=== PATIENT | male | born 1980 | race Two or more races ===

== ENCOUNTER 2025-01-12 23:03 | Emergency (ER) | payer MEDICAID, SELFPAY ==
[2025-01-12 23:15] VITALS: PULSE 79; RESP 18; O2SAT 99; BMI 22.3
[2025-01-12 23:29] VITALS: BP 132/81; PULSE 75; RESP 18; TEMP 35.9; O2SAT 96
--- NOTE | 2025-01-12 23:36 | PD.EDABDPN ---
ED Abdominal Pain RME/HPI General Chief Complaint: Abdominal Pain Stated complaint: NAUSEA VOMITING Time seen by provider: 01/12/25 23:31 Arrival date/time: 01/12/25 23:03 Source: patient and EMS Mode of arrival: EMS Limitations: no limitations RME / HPI RME / HPI narrative: Dr. Hennessy?s Main ED Evaluation: 44yo male with a history of gallstones presents to the ED for a chief complaint of severe epigastric pain. Patient states he started having epigastric pain 2 hours ago after eating spicy food. He states he was unable to tolerate the pain, so he came in for evaluation. He denies any N/V, fever, chills or any other associated symptoms. No known allergies. Related Data Previous Rx's ?Medication ?Instructions ?Recorded aluminum-mag hydroxide-simethicone 10 ml PO TID PRN indigestion 01/13/25 400 mg-400 mg-40 mg/5 mL oral susp #3,000 mL (Antacid Maximum Strength) famotidine 20 mg tablet (Pepcid) 20 mg PO BID Epigastric pain 10 01/13/25 days #20 tabs ondansetron 4 mg disintegrating 4 mg PO Q6H PRN nausea and 01/13/25 tablet vomiting #14 tabs sucralfate 1 gram tablet (Carafate) 1 g PO TID Gastritis 10 days #30 01/13/25 tabs Allergies Allergy/AdvReac Type Severity Reaction Status Date / Time No Known Allergies Allergy Verified 02/07/23 15:23 Review of Systems Review of Systems Systems Reviewed: All systems reviewed, normal except as documented Past Medical History Past Medical History CARDIAC: Negative Cardiac Disorders or Congestive Heart Failure RESPIRATORY: Negative Chronic Obstructive Pulmonary Disease (COPD) or Asthma GENITOURINARY: Negative Renal Disease ENDOCRINE: Negative Diabetes Mellitus Type 1 or Diabetes Mellitus Type 2 Social History SMOKING STATUS: Current some day smoker SUBSTANCE USE: does not use ED Exam Narrative Physical exam: GENERAL APPEARANCE: alert and oriented x 4, well-developed, well-nourished, in pain distress VITALS: All vitals were reviewed and the pulse ox is 96% on room air, which is normal according to my interpretation. HEENT: Normocephalic, atraumatic; pupils equal, round, reactive to light; EOMI; mucous membranes pink, moist; oropharynx clear NECK: Supple LUNGS: CTABL; no wheezes, no rales, no rhonchi HEART: Regular rate, regular rhythm; normal S1, S2; no murmurs ABDOMEN: non distended; normal BS; soft, exquisite tenderness of the epigastric area and RUQ with mild tenderness, no RLQ tenderness on palpation, positive Oliver sign, no guarding, no rebound; no masses, no organomegaly, no hernia BACK: no CVA tenderness EXTREMITIES: atraumatic; no edema NEUROLOGIC: awake; alert and oriented x4; cranial nerves II-XII grossly intact; no focal sensory or motor deficits PSYCHIATRIC: appropriate mood and affect SKIN: warm, dry, normal color; no rashes General Limitations: Present no limitations Course Course Course Narrative: CXR is ordered for determining the etiology of cough. Quality Measures none Orders Category Date Time Status CT Screening NOW Care 01/12/25 23:53 Completed Telecom Coordinator STAT Care 01/12/25 23:37 Completed Continuous Pulse Oximetry STAT Care 01/12/25 23:37 Completed EKG (ED ONLY) *Do not use* NOW Care 01/12/25 23:37 Completed Insert IV STAT Care 01/12/25 23:[address] abdomen pelvis w con Stat Exams 01/12/25 23:53 Taken EKG (ED Only) Stat Exams 01/12/25 23:37 Draft US gall bladder Stat Exams 01/13/25 01:00 Ordered XR chest 1V portable Stat Exams 01/12/25 23:38 Completed CBC Stat Lab 01/12/25 23:56 Completed Comprehensive Metabolic Panel Stat Lab 01/12/25 23:56 Completed Lipase Stat Lab 01/12/25 23:56 Completed Magnesium Stat Lab 01/12/25 23:56 Completed Urinalysis Stat Lab 01/13/25 00:34 Completed Famotidine Inj [Pepcid Inj] Med 01/12/25 23:36 Discontinued 20 mg IVP X1 ONE HYDROmorphone INJ [Dilaudid Inj] Med 01/12/25 23:36 Discontinued 1 mg IVP X1 ONE Ondansetron Inj [Zofran Inj] Med 01/12/25 23:36 Discontinued 4 mg IV X1 ONE Sodium Chloride 0.9% 1000 ml [Ns] 1,000 ml Med 01/12/25 23:37 Discontinued IV 999 mls/hr mg Hyd/Al Hyd/[place] Susp [Maalox Susp] Med 01/12/25 23:36 Discontinued 30 ml PO X1 ONE Vital Signs Vital signs: Vital Signs Temperature 96.7 F L 01/12/25 23:29 Pulse Rate 75 01/12/25 23:29 Respiratory Rate 18 01/12/25 23:29 Blood Pressure 132/81 H 01/12/25 23:29 Pulse Oximetry (%) 96 01/12/25 23:29 Oxygen Delivery Method Room Air 01/12/25 23:29 Procedures -ED Procedure Comment Manual EKG obtained at 23:59 shows normal sinus rhythm at 79 bpm with normal axis, Q waves in V1, V2, and aVL, T wave inversions in V4?V6, and no evidence of STEMI per my interpretation. Abdominal Pain MDM MDM Narrative MDM Narrative:: Scribe Attestation: 01/12/25 Little Beyer am scribing for and in the presence of Dr. Hennessy. Patient data External records reviewed:: [facility] previous records (Per chart review, patient was seen here on 08/22/20 for biliary colic.) Clinical information provided by:: patient Social determinants that could affect healthcare access:: none Patient has the following chronic illnesses:: none How is presenting disease/condition affected by chronic disease/condition?: no chronic disease Evaluation data The following diagnostics were reviewed and interpreted by me:: lab results and radiology exam(s) Lab and/or radiology exams considered but not ordered:: none Interpretation Summary: Gallbladder ultrasound. January 13, 2025 0136 hours Clinical history: RUQ and epigastric pain. Hx GB pathology Findings: The visualized liver is normal in echogenicity without mass or ductal dilatation. Multiple calculi are noted within the gallbladder, without evidence of gallbladder wall thickening or pericholecystic fluid. The main portal vein is patent and demonstrates hepatopetal flow. The pancreas is unremarkable.The common duct is normal in caliber at 6mm. No free fluid is demonstrated on the submitted images.The inferior vena cava is patent. Impression: Cholelithiasis without acute cholecystitis. Medications / Prescriptions Medications or Prescriptions considered but not ordered:: none Medication administrations:: Medication Administration History Discontinued Medications Al Hydrox/Mg Hydrox/Simethicone (Mg Hyd/Al Hyd/[place] (Maalox Reg) Susp 30 Ml Udc) 30 ml PO X1 ONE Stop: 01/12/25 23:37 Last Admin: 01/13/25 00:13 Dose: 30 ml Documented By: EF Famotidine (Famotidine Inj 10 Mg/Ml Vial 2 Ml) 20 mg IVP X1 ONE Stop: 01/12/25 23:37 Last Admin: 01/13/25 00:12 Dose: 20 mg Documented By: EF Hydromorphone HCl (Hydromorphone Inj 2 Mg/Ml Vial) 1 mg IVP X1 ONE Stop: 01/12/25 23:37 Last Admin: 01/13/25 00:13 Dose: 1 mg Documented By: EF Sodium Chloride (Ns) 1,000 mls @ 999 mls/hr IV .Q1H1M ONE Stop: 01/13/25 00:37 Last Infusion: 01/13/25 01:13 Dose: Infused Documented By: Admin: 01/13/25 00:12 Dose: 999 mls/hr Documented By: EF Ondansetron HCl (Ondansetron Inj 2 Mg/Ml Inj 2 Ml) 4 mg IV X1 ONE; Protocol Stop: 01/12/25 23:37 Last Admin: 01/13/25 00:13 Dose: 4 mg Documented By: EF see above Consultations Consultation(s) initiated? (list below): No Diagnosis Differential diagnosis abdominal pain: diverticulitis, pancreatitis and other (cholelithiasis, choledocolithiasis, cholecystitis) Most likely diagnosis given after review of the tests above:: see clinical impression below Admission Indicated Admission indicated?: not indicated Admission Request Was there a request for admission?: No Disposition Plan Disposition Plan: Discharge Discharge Attestation Discharge Attestation: The patient and all family members were given an opportunity to ask questions and understood the discharge instructions. Discharge instructions specifically effects, indications for sooner follow up or return to the emergency department, and the expected course of current diagnosis. Patient condition: Stable Discharge Plan Plan Patient Disposition: HOME (Self Care) Disposition Comment: Stable for discharge home Patient condition on transfer: Stable Prescriptions/Referrals Prescriptions/Med Rec: New famotidine [Pepcid] 20 mg tablet 20 mg PO BID 10 Days Qty: 20 0RF alum-mag hydroxide-simeth [Antacid Maximum Strength] 400-400-40 mg/5 mL suspension 10 ml PO TID PRN (Reason: indigestion) Qty: 3000 0RF sucralfate [Carafate] 1 gram tablet 1 g PO TID 10 Days Qty: 30 0RF ondansetron 4 mg tablet,disintegrating 4 mg PO Q6H PRN (Reason: nausea and vomiting) Qty: 14 0RF Referrals: Samuel Kumar MD [Primary Care Provider] - In 1 week José Luis Conte MD [Physician] - In 1 week Problem List Clinical Impression: Acute epigastric pain, Gastritis, Vomiting Patient/Caregiver Discharge Instructions Discharge Activity: activity as tolerated Diet Instructions: No greasy or spicy foods Education Materials: ED Gastritis (Adult), ED Vomiting (Adult), ED Epigastric Pain (Uncertain Cause) Additional Instructions: Please return to the emergency department if you have any worsening or any further medical problems and we will help you. Otherwise you should follow-up with your primary care doctor within the next several days. I have given you the contact information for Dr. Conte. Dr. Conte is the real estate broker who is on-call for our emergency department. Please give his office a call and make a follow-up appointment. Have called in several medications to your pharmacy. Please take these as directed. Print Language: Syriac Stand Alone Forms: Shruthi Award Info., Patient Portal Info Letter
--- NOTE | 2025-01-12 23:37 | EKG_ITS ---
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
--- NOTE | 2025-01-12 23:38 | XR_ITS ---
Examination: AP chest single view TECHNIQUE: AP portable upright chest single view Examination date and time: January 13, 2025 1218 hours Comparison February 07, 2023, October 16, 2021 INDICATIONS: Coughing upper abdominal pain beginning 2 hours ago FINDINGS: Again noted calcified granuloma left upper lobe, noted on chest films dating to October 16, 2021 Normal heart size. No pneumonia or pulmonary edema Moderate osteopenia Upper thoracic levoscoliosis 17 degrees IMPRESSION: No active disease
--- NOTE | 2025-01-12 23:53 | XR_ITS ---
Examination: CT abdomen with intravenous contrast CT pelvis with intravenous contrast 2-D coronal reconstructions 2-D sagittal reconstructions Date and time of exam:January 13, 2025 0216 hours Comparison August 22, 2020 INDICATIONS: Onset right-sided abdominal pain today. CTDI: vol (mGy) 5.69 DLP: (mGycm) 304 Technique: Multiple axial sections of the abdomen and pelvis have been obtained. 64 slice high-resolution scanner used. 3 mm axial sections have been obtained, post intravenous injection 60 cc [id number] 2-D sagittal, coronal reconstructions obtained. Low dose protocols were performed. One or more of the following dose reduction techniques were used; automated exposure control, adjustment of the mA and/or KV according to patient size, use of iterative reconstruction technique. Findings: No focal liver or splenic lesions Mildly distended gallbladder Gastric mucosa appears thickened No pancreatic or adrenal mass Multiple subcentimeter renal calculi Subtle edema right kidney Aorta normal size Minimal thickening of the appendix without inflammatory change No bowel obstruction Urinary bladder intact Advanced disc narrowing L5-S1 IMPRESSION: Gastritis pattern Bilateral renal calculi Suspicious for mild right pyelonephritis
[2025-01-13 00:02] LABS: Basophils # (Auto) 0.1 Thou/mm3 (0.0-0.2); Basophils % (Auto) 1 % (0-2.5); Eosinophils # (Auto) 0.2 Thou/mm3 (0.0-0.5); Eosinophils % (Auto) 2 % (0-10); Hematocrit 37.8 % (41.0-53.0); Hemoglobin 13.7 g/dL (13.5-16.0); Immature Granulocytes % (Auto) 0 % (0-0); Immature Granulocytes Auto 0.02 Thou/mm3 (0.00-0.00); Lymphocytes # (Auto) 1.7 Thou/mm3 (1.0-4.8); Lymphocytes % (Auto) 20 % (10-50); Mean Corpuscular HGB Conc 36.2 g/dl (31.0-37.0); Mean Corpuscular Hemoglobin 30.3 pg (25.0-35.0); Mean Corpuscular Volume 84 fL (80-100); Monocytes # (Auto) 0.6 Thou/mm3 (0.0-0.8); Monocytes % (Auto) 7 % (0-12); Neutrophils # (Auto) 5.9 Thou/mm3 (1.8-7.7); Neutrophils % (Auto) 70 % (37-80); Nucleated Red Blood Cell % 0 /100 WBC (0); Platelet Count 311 Thou/mm3 (140-440); RDW Standard Deviation 36.9 fL (35.1-43.9); Red Blood Count 4.52 Miln/mm3 (4.50-5.90); White Blood Count 8.5 Thou/mm3 (3.8-10.6)
[2025-01-13 00:03] VITALS: PULSE 63
[2025-01-13] MEDS: FAMOTIDINE INJ 10 MG/ML VIAL 2 ML 20 MG IVP (00:12)
[2025-01-13] MEDS: SODIUM CHLORIDE 0.9% 1000 ML 1,000 ML 999 ML IV (00:12)
[2025-01-13] MEDS: MG HYD/AL HYD/SIME (Maalox Reg) SUSP 30 ML UDC PO (00:13)
[2025-01-13] MEDS: ONDANSETRON INJ 2 MG/ML INJ 2 ML 4 MG IV (00:13)
[2025-01-13] MEDS: HYDROmorphone INJ 2 MG/ML VIAL 1 MG IVP (00:13)
[2025-01-13 00:25] LABS: Alanine Aminotransferase 29 U/L (10-49); Albumin, Serum 4.1 gm/dL (3.5-5.0); Albumin/Globulin Ratio 1.4 (1.2-2.2); Alkaline Phosphatase 92 U/L (46-116); Anion Gap 11 (7-16); Aspartate Amino Transferase 21 U/L (0-34); BUN/Creatinine Ratio 17 Ratio (12-20); Bilirubin,Total 0.3 mg/dL (0.3-1.2); Blood Urea Nitrogen 19 mg/dL (9-23); Calcium 9.3 mg/dL (8.3-10.6); Calcium (Corrected) 9.3 mg/dL (8.5-10.1); Carbon Dioxide 24.1 mMol/L (20.0-31.0); Chloride 106 mMol/L (98-107); Creatinine (Component) 1.1 mg/dL (0.6-1.3); Estimated Creatinine Clearance 66.9 mL/min (>60); Globulin 2.9 gm/dL (2.3-3.5); Glucose 184 mg/dL (74-106); Lipase 58 U/L (12-53); Magnesium 1.8 mg/dL (1.6-2.6); Osmolality,Calculated 288 (275-295); Sodium 141 mMol/L (136-145); eGFR > 60 See Note
[2025-01-13 00:35] LABS: Collection Type, Urine Clean Catch
[2025-01-13 00:49] LABS: Bilirubin,Urine Negative (Negative); Blood,Urine Negative (Negative); Clarity,Urine Clear (Clear/Hazy); Color,Urine Lt-Yellow (Lt Yel-Yel); Glucose, Urine Negative (Negative); Ketones,Urine Negative (Negative); Leukocyte Esterase,Urine Negative (Negative); Nitrite,Urine Negative (Negative); Protein,Urine Negative (Neg - Trace); RBC,Urine 5 /hpf (0-3); Specific Gravity,Urine 1.027 (1.001-1.035); Squamous Epithelial Cell,Urine < 1 /hpf (0-5); Urobilinogen,Urine Negative mg/dL (0.0-1.0); WBC,Urine < 1 /hpf (0-5)
--- NOTE | 2025-01-13 01:00 | XR_ITS ---
Examination: Abdomen sonogram, Limited Date and time of exam: January 13, 2025 0136 hours INDICATIONS: Right upper abdominal pain epigastric pain this week Technique: Real-time merchant scale transabdominal sonographic images of the upper abdomen obtained. Findings: Cholelithiasis Gallbladder wall 0.3 cm Common bile duct 0.6 cm Pancreatic head 3.5 cm Liver 13.4 cm no focal liver lesions Normal hepatopedal portal venous flow Patent IVC IMPRESSION: Cholelithiasis, negative for cholecystitis
--- NOTE | 2025-01-13 04:05 | PC.NURSE ---
WE HAD DOWN TIME FROM [id number].
[2025-01-13 04:16] VITALS: BP 141/89; PULSE 61; RESP 17; O2SAT 100
--- NOTE | 2025-01-13 04:19 | PRELIM_ITS ---
Gallbladder ultrasound. January 13, 2025 0136 hours Clinical history: RUQ and epigastric pain. Hx GB pathology Findings: The visualized liver is normal in echogenicity without mass or ductal dilatation. Multiple calculi are noted within the gallbladder, without evidence of gallbladder wall thickening or pericholecystic fluid. The main portal vein is patent and demonstrates hepatopetal flow. The pancreas is unremarkable.The common duct is normal in caliber at 6mm. No free fluid is demonstrated on the submitted images.The inferior vena cava is patent. Impression: Cholelithiasis without acute cholecystitis. Report Electronically Signed By: Christophe Moore 01/13/2025 4:18:37 AM [EST]
[2025-01-13 04:57] VITALS: PULSE 88; RESP 13; TEMP 36.6; O2SAT 97
== END 2025-01-13 04:58 | disposition home or self-care (01) ==
PROVIDERS: Emergency Provider Emergency Medicine; PCP Family Medicine
DX: K29.70 Gastritis, unspecified, without bleeding (principal)
CPT/HCPCS: 36415; 71045; 74177; 76705; 80053; 81001; 83690; 83735; 85025; 93005; 96361; 96374; 96375; 99285; A4649; J2405; J3490; J7030; Q9967; A9270

== ENCOUNTER 2025-01-13 11:53 | Inpatient (IN) | payer MEDICAID, SELFPAY ==
[2025-01-13] VITALS (8 sets, daily range): BP systolic 105–137; BP diastolic 78–95; PULSE 78–104; RESP 14–20; TEMP 36.4–37; O2SAT 94–100; BMI 25.0; BMI 21.9
--- NOTE | 2025-01-13 | XR_ITS ---
MRI abdomen, without contrast. MRCP Date and time of exam: January 13, 2025 1904 hours INDICATIONS: Leukocytosis, elevated liver function tests on laboratory examination today, right upper abdominal pain epigastric pain, thickened gallbladder wall on liver sonogram today Technique: Multiple axial and coronal images of the abdomen have been obtained with the Siemens 1.5T MRI scanner. Images obtained included T1 weighted transverse images, T2-weighted transverse images, T2-weighted transverse images fat-suppressed, T2 weighted haste fat suppressed transverse images, T1 weighted images, in and out of phase images, T2-weighted coronal images, breath hold, T2 weighted haze coronal images as well as T2 weighted coronal thick slab images, MRCP. Findings: No focal liver lesions Cholelithiasis Marked gallbladder wall thickening edema and pericholecystic inflammatory change Common hepatic duct 4 mm, common bile duct 4 mm no common hepatic duct or common bile duct stones Minimal edema around the pancreas Spleen is not enlarged No hydronephrosis Minimal perinephric stranding Aorta normal size IMPRESSION: Acute calculus cholecystitis Negative for common hepatic or common bile duct stones Suspicious for mild acute pancreatitis
--- NOTE | 2025-01-13 12:24 | PD.EDRME ---
Rapid Medical Screening Exam RME Arrival date/time: 01/13/25 11:53 44-year-old male presents to the Emergency Department for complaints of abdominal pain Vital signs: Vital Signs Temperature 97.7 F 01/13/25 11:56 Pulse Rate 100 01/13/25 11:56 Respiratory Rate 18 01/13/25 11:56 Blood Pressure 123/86 H 01/13/25 11:56 Pulse Oximetry (%) 99 01/13/25 11:56 Oxygen Delivery Method Room Air 01/13/25 11:56
[2025-01-13 12:46] LABS: Basophils # (Auto) 0.1 Thou/mm3 (0.0-0.2); Basophils % (Auto) 0 % (0-2.5); Eosinophils % (Auto) 0 % (0-10); Hematocrit 39.7 % (41.0-53.0); Hemoglobin 14.1 g/dL (13.5-16.0); Immature Granulocytes % (Auto) 0 % (0-0); Immature Granulocytes Auto 0.08 Thou/mm3 (0.00-0.00); Lymphocytes # (Auto) 0.7 Thou/mm3 (1.0-4.8); Lymphocytes % (Auto) 3 % (10-50); Mean Corpuscular HGB Conc 35.5 g/dl (31.0-37.0); Mean Corpuscular Hemoglobin 30.5 pg (25.0-35.0); Mean Corpuscular Volume 86 fL (80-100); Monocytes # (Auto) 1.7 Thou/mm3 (0.0-0.8); Monocytes % (Auto) 9 % (0-12); Neutrophils # (Auto) 17.6 Thou/mm3 (1.8-7.7); Neutrophils % (Auto) 88 % (37-80); Nucleated Red Blood Cell % 0 /100 WBC (0); Platelet Count 286 Thou/mm3 (140-440); RDW Standard Deviation 38.3 fL (35.1-43.9); Red Blood Count 4.63 Miln/mm3 (4.50-5.90); White Blood Count 20.1 Thou/mm3 (3.8-10.6)
[2025-01-13] MEDS: ONDANSETRON INJ 2 MG/ML INJ 2 ML 4 MG IV ×2 (12:50→16:42)
[2025-01-13] MEDS: MORPHINE SULF INJ 10 MG/ML VIAL 4 MG IVP ×2 (12:50→16:43)
[2025-01-13 13:09] LABS: Alanine Aminotransferase 344 U/L (10-49); Albumin, Serum 4.4 gm/dL (3.5-5.0); Albumin/Globulin Ratio 1.4 (1.2-2.2); Alcohol, Blood Medical < 3.0 mg/dL (0-10.0); Alkaline Phosphatase 117 U/L (46-116); Anion Gap 7 (7-16); Aspartate Amino Transferase 403 U/L (0-34); BUN/Creatinine Ratio 19 Ratio (12-20); Bilirubin,Total 1.5 mg/dL (0.3-1.2); Blood Urea Nitrogen 17 mg/dL (9-23); Calcium 9.1 mg/dL (8.3-10.6); Calcium (Corrected) 9.1 mg/dL (8.5-10.1); Carbon Dioxide 28.3 mMol/L (20.0-31.0); Chloride 103 mMol/L (98-107); Creatinine (Component) 0.9 mg/dL (0.6-1.3); Estimated Creatinine Clearance 95.5 mL/min (>60); Globulin 3.1 gm/dL (2.3-3.5); Glucose 147 mg/dL (74-106); Lipase 37 U/L (12-53); Osmolality,Calculated 280 (275-295); Potassium 4.1 mMol/L (3.4-5.1); Sodium 138 mMol/L (136-145); Total Protein 7.5 gm/dL (5.7-8.2); eGFR > 60 See Note
--- NOTE | 2025-01-13 13:28 | XR_ITS ---
Examination: Abdomen sonogram, Limited Date and time of exam: January 13, 2025 1510 hours INDICATIONS: Elevated liver function tests on laboratory examination 2 days ago Technique: Real-time merchant scale transabdominal sonographic images of the upper abdomen obtained. Findings: Multiple gallstones Gallbladder wall is thickened and edematous Common bile duct 0.4 cm Pancreas obscured by bowel gas Liver 13.8 cm fatty infiltration trace free fluid in the upper abdomen Normal hepatopedal portal venous flow Patent IVC IMPRESSION: Cholelithiasis Gallbladder wall is thickened 0.6 cm with edema, consider MRCP follow-up to confirm acute cholecystitis
--- NOTE | 2025-01-13 14:27 | PD.EDABDPN ---
ED Abdominal Pain RME/HPI General Chief Complaint: Abdominal Pain Stated complaint: R UPPER QUADRUNT PAIN Time seen by provider: 01/13/25 20:19 Arrival date/time: 01/13/25 11:53 Limitations: no limitations RME / HPI RME / HPI narrative: 01/13/25 11:53 44-year-old male presents to the Emergency Department for complaints of abdominal pain DR. NORRIS MAIN ED EVALUATION: 44 year old male with known history of gallstones x 6 years presents to the ED for evaluation of abdominal pain today. Reports pain began yesterday that is located most to the right upper and epigastric areas, described as colicky in sensation, rating as moderate-severe. Accompanied by nausea and vomiting. Patient states he was evaluated here yesterday for similar pain and discharged home with pain medication. 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 States he has yet to consult with a surgeon regarding gallstones and last attack was 6 years ago per patient. Denies fevers, chills, sweats, chest pain, cough, shortness of breath, diarrhea, constipation, or urinary symptoms. Patient admits to drinking a 6 pack of beers on the weekends. Denies any smoking or drug use. Related Data Previous Rx's ?Medication ?Instructions ?Recorded ondansetron 4 mg disintegrating 4 mg PO Q6H PRN nausea and 01/13/25 tablet vomiting #14 tabs Allergies Allergy/AdvReac Type Severity Reaction Status Date / Time No Known Allergies Allergy Verified 01/14/25 07:10 Review of Systems Review of Systems Narrative Review of Systems: GEN: No fever, no chills, no weight loss EYES: No discharge, no visual changes, no pain HEENT: No ear pain, no congestion, no sore throat PULM: No shortness of breath, no cough, no congestion CV: No chest pain, no dyspnea on exertion, no palpitations GI: +nausea, no vomiting, no diarrhea, +pain, no constipation : No frequency, no urgency, no dysuria MUSC/SKEL: No joint pain, no back pain SKIN: No rash NEURO: No weakness, no headache Past Medical History Past Medical History CARDIAC: Negative Cardiac Disorders or Congestive Heart Failure RESPIRATORY: Negative Chronic Obstructive Pulmonary Disease (COPD) or Asthma GENITOURINARY: Negative Renal Disease ENDOCRINE: Negative Diabetes Mellitus Type 1 or Diabetes Mellitus Type 2 HEMATOLOGIC: Negative Sickle Cell Disease OTHER HISTORY: Negative Cancer Social History SMOKING STATUS: Never smoker SUBSTANCE USE: does not use ED Exam General Limitations: Present no limitations General appearance: Present alert and in distress (appears to be in moderate pain ) Head Head exam: Present atraumatic, normocephalic and normal inspection Eye Eye exam: Present normal appearance, PERRL and EOMI ENT ENT exam: Present normal exam, normal oropharynx and mucous membranes moist Neck Neck exam: Present normal inspection, full ROM and trachea midline Chest Chest inspection: Present normal inspection and symmetric chest wall rise Respiratory Respiratory exam: Present normal lung sounds bilaterally Cardiovascular Cardiovascular exam: Present regular rate, normal rhythm and normal heart sounds Abdominal Exam Abdominal exam: Present soft, normal bowel sounds and other (guarding throughout, 2-3+ tenderness to the right upper quadrant, percussion tenderness, absent bowel sounds) exam: Present normal inspection and other (uncircumcised, testes are descended ) Extremities Exam Extremities exam: Present normal inspection and full ROM Back Exam Back exam: Present normal inspection and full ROM Neurological Exam Neurological exam: Present alert, oriented X3 and CN II-XII intact Psychiatric Psychiatric exam: Present normal affect and normal mood Skin Skin exam: Present warm, dry, intact and normal color Course Course Course Narrative: 1800: Patient signed out to Dr. Hennessy pending [facility]. Quality Measures none Orders Category Date Time Status Admit to Inpatient Status Routine Admission 01/14/25 07:35 Active Patient Condition Routine Admission 01/13/25 21:41 Ordered Ambulate in [place] on 2nd Day Routine Care 01/14/25 07:35 Ordered Bed to Chair in A.M. Routine Care 01/14/25 07:35 Ordered COVID-19 Screening Questionnaire NOW Care 01/13/25 22:54 Completed Ice Chips NEEDED Care 01/14/25 07:35 Completed Incentive Spirometry Treatment .q2h w/a Care 01/14/25 07:35 Completed Insert IV NOW Care 01/13/25 12:24 Completed Insert IV NOW Care 01/13/25 21:41 Completed Intake and Output Routine Care 01/14/25 07:35 Ordered MRI Screening NOW Care 01/13/25 15:39 Completed Obtain Written Consent For: NOW Care 01/13/25 21:41 Completed Sequential Compression Device NOW Care 01/14/25 07:35 Completed Turn, Cough, and Deep Breathe NOW Care 01/14/25 07:35 Completed Vital Signs, Non-Routine [id number] Care 01/14/25 07:35 Ordered MR MRCP Stat Exams 01/13/25 Completed US liver Stat Exams 01/13/25 13:28 Completed Alcohol, Blood Medical Stat Lab 01/13/25 12:33 Completed Blood Culture (Lab) Stat Lab 01/13/25 15:48 Results CBC AM DRAW Lab 01/15/25 05:08 Completed CBC Stat Lab 01/13/25 12:33 Completed Comprehensive Metabolic Panel Stat Lab 01/13/25 12:33 Completed Drug Screen,Urine Stat Lab 01/13/25 14:28 Completed Electrolytes AM DRAW Lab 01/15/25 05:08 Completed Lipase Stat Lab 01/13/25 12:33 Completed Liver Panel AM DRAW Lab 01/15/25 05:08 Completed Liver Panel Routine Lab 01/13/25 22:15 Completed Liver Panel Stat Lab 01/14/25 04:35 Completed UA, C/S IF [Urinalysis, C/S if Indicated] Stat Lab 01/13/25 14:28 Completed Acetaminophen Ivpb [Ofirmev Inj] Med 01/14/25 05:26 Discontinued 1,000 mg in 100 ml IV Q6HR Acetaminophen Tab [Tylenol Tab] Med 01/14/25 07:35 Discontinued 650 mg PO Q6HR PRN Bupivacaine Mpf/Epi 0.5% [Sensorcaine-Mpf Inj 0.5% w/ Med 01/14/25 04:55 Discontinued Epi] 30 ml .ROUTE .STK-MED ONE Dexamethasone Inj [Decadron Inj] Med 01/14/25 04:44 Discontinued 10 mg .ROUTE .STK-MED ONE Dextrose 5%-0.45% Ns [D5-1/2Ns] 1,000 ml Med 01/13/25 20:30 Discontinued IV 110 mls/hr HYDROmorphone INJ [Dilaudid Inj] Med 01/14/25 05:24 Discontinued 0.4 mg IV Q5M PRN HYDROmorphone INJ [Dilaudid Inj] Med 01/13/25 20:45 Discontinued 0.5 mg IVP Q30MIN PRN Ketorolac Inj [Toradol Inj] Med 01/14/25 04:44 Discontinued 30 mg .ROUTE .STK-MED ONE Ketorolac Inj [Toradol Inj] Med 01/14/25 07:35 Discontinued 30 mg IVP Q6HR PRN Midazolam Inj [Versed Inj] Med 01/14/25 04:43 Discontinued 2 mg .ROUTE .STK-MED ONE Morphine Inj Med 01/14/25 05:24 Discontinued 3 mg IV Q5M PRN Morphine Inj Med 01/13/25 21:41 Discontinued 4 mg IVP Q4HR PRN Morphine Inj Med 01/13/25 12:23 Discontinued 4 mg IVP X1 ONE Morphine Inj Med 01/13/25 15:40 Discontinued 4 mg IVP X1 ONE Ondansetron Inj [Zofran Inj] Med 01/14/25 04:44 Discontinued 4 mg .ROUTE .STK-MED ONE Ondansetron Inj [Zofran Inj] Med 01/14/25 07:35 Discontinued 4 mg IV Q4HR PRN Ondansetron Inj [Zofran Inj] Med 01/13/25 12:23 Discontinued 4 mg IV X1 ONE Ondansetron Inj [Zofran Inj] Med 01/13/25 15:40 Discontinued 4 mg IV X1 ONE Ondansetron Inj [Zofran Inj] Med 01/14/25 05:24 Discontinued 4 mg IV X1 ONE Piper/Tazo 3.375 gm Premix [Zosyn] Med 01/13/25 21:44 Discontinued 3.375 gm in 50 ml IV Q8HR Piper/Tazo 3.375 gm Premix [Zosyn] Med 01/13/25 15:38 Discontinued 3.375 gm in 50 ml IV X1 Propofol Inj [Diprivan Inj] Med 01/14/25 04:43 Discontinued 200 mg IV .STK-MED ONE Rocuronium Inj [Zemuron Inj] Med 01/14/25 04:44 Discontinued 100 mg .ROUTE .STK-MED ONE Sodium Chloride 0.9% 1000 ml [Ns] 1,000 ml Med 01/13/25 21:45 Discontinued IV 100 mls/hr Sugammadex Inj [Bridion Inj] Med 01/14/25 04:43 Discontinued 200 mg .ROUTE .STK-MED ONE fentaNYL INJ [Sublimaze Inj] Med 01/14/25 04:43 Discontinued 100 mcg .ROUTE .STK-MED ONE Code Status Routine Oth 01/13/25 21:41 Completed Oxygen Delivery PRN RT 04/03/25 05:24 Completed Health Equity Referral - Knowledge Deficit Routine SS 01/14/25 00:08 Active Referral Remedial Project Manager NOW 01/14/25 00:08 Completed Transfer Order Routine Transfer 01/14/25 06:44 Completed Vital Signs Vital signs: Vital Signs Temperature 97.7 F 01/13/25 11:56 Pulse Rate 100 01/13/25 11:56 Respiratory Rate 18 01/13/25 11:56 Blood Pressure 123/86 H 01/13/25 11:56 Pulse Oximetry (%) 99 01/13/25 11:56 Oxygen Delivery Method Room Air 01/13/25 11:56 Pulse ox is 99% on room air which is adequate. Abdominal Pain MDM MDM Narrative MDM Narrative:: Stella Leger am scribing for and in the presence of Dr. Norris. Patient data External records reviewed:: [facility] previous records (I reviewed ED visit from yesterday 01/12/2025 ) Clinical information provided by:: patient Social determinants that could affect healthcare access:: alcohol use Patient has the following chronic illnesses:: known hx of gallstones How is presenting disease/condition affected by chronic disease/condition?: exacerbated by Evaluation data The following diagnostics were reviewed and interpreted by me:: lab results and radiology exam(s) Lab and/or radiology exams considered but not ordered:: None Interpretation Summary: Ordering Physician: Gonzalez Hennessy MD Date of Service: 01/13/25 Procedure(s): US gall bladder Accession Number(s): [id number] cc: Samuel Kumar MD; Douglas Ramos MD; Gonzalez Hennessy MD~ Examination: Abdomen sonogram, Limited Date and time of exam: January 13, 2025 0136 hours INDICATIONS: Right upper abdominal pain epigastric pain this week Technique: Real-time merchant scale transabdominal sonographic images of the upper abdomen obtained. Findings: Cholelithiasis Gallbladder wall 0.3 cm Common bile duct 0.6 cm Pancreatic head 3.5 cm Liver 13.4 cm no focal liver lesions Normal hepatopedal portal venous flow Patent IVC IMPRESSION: Cholelithiasis, negative for cholecystitis Dictated By: Douglas Ramos MD Signed By: <Electronically signed by Douglas Ramos MD in OV> 01/13/25 0859 Medications / Prescriptions Medications or Prescriptions considered but not ordered:: None Medication administrations:: Medication Administration History Discontinued Medications Acetaminophen (Acetaminophen 325 Mg Tablet) 650 mg PO Q6HR PRN PRN Reason: FEVER>101.5 Stop: 02/13/25 07:34 Bupivacaine HCl/Epinephrine Bitart (Bupivacaine Mpf/Epi 0.5% 30 Ml Vial 1:200,000) Confirm Administered Dose 30 ml .ROUTE .STK-MED ONE Stop: 01/14/25 04:56 Dexamethasone Sodium Phosphate (Dexamethasone Sod Phos Inj 10 Mg/Ml Vial) Confirm Administered Dose 10 mg .ROUTE .STK-MED ONE Stop: 01/14/25 04:45 Fentanyl Citrate (Fentanyl Cit Inj 50 Mcg/Ml Amp 2ml) Confirm Administered Dose 100 mcg .ROUTE .STK-MED ONE Stop: 01/14/25 04:44 Hydromorphone HCl (Hydromorphone Inj 2 Mg/Ml Vial) 0.5 mg IVP Q30MIN PRN PRN Reason: PAIN Stop: 01/18/25 20:44 Last Admin: 01/13/25 20:50 Dose: 0.5 mg Documented By: TREY Hydromorphone HCl (Hydromorphone Inj 2 Mg/Ml Vial) 0.4 mg IV Q5M PRN PRN Reason: PAIN SCALE 7-10 (Severe Stop: 01/14/25 07:25 Piperacillin/Tazobactam/Dextrose (Zosyn) 3.375 gm in 50 mls @ 100 mls/hr IV X1 ONE Stop: 01/13/25 16:07 Last Infusion: 01/13/25 17:29 Dose: Infused Documented By: Admin: 01/13/25 16:44 Dose: 100 mls/hr Documented By: [facility] Dextrose/Sodium Chloride (D5-1/2ns) 1,000 mls @ 110 mls/hr IV .Q9H6M SANDY Stop: 02/12/25 20:29 Last Admin: 01/13/25 20:50 Dose: 110 mls/hr Documented By: TREY Sodium Chloride (Ns) 1,000 mls @ 100 mls/hr IV .Q10H SANDY Stop: 02/12/25 21:44 Last Admin: 01/16/25 03:26 Dose: 100 mls/hr Documented By: Infusion: 01/16/25 02:32 Dose: Infused Documented By: Admin: 01/15/25 16:32 Dose: 100 mls/hr Documented By: Infusion: 01/15/25 15:10 Dose: Infused Documented By: Admin: 01/15/25 05:10 Dose: 100 mls/hr Documented By: Infusion: 01/15/25 04:09 Dose: Infused Documented By: Admin: 01/14/25 18:09 Dose: 100 mls/hr Documented By: Infusion: 01/14/25 17:39 Dose: Infused Documented By: Admin: 01/14/25 07:39 Dose: 100 mls/hr Documented By: Infusion: 01/14/25 07:39 Dose: Infused Documented By: Admin: 01/14/25 00:13 Dose: 100 mls/hr Documented By: Piperacillin/Tazobactam/Dextrose (Zosyn) 3.375 gm in 50 mls @ 100 mls/hr IV Q8HR SANDY Stop: 01/20/25 21:43 Last Admin: 01/16/25 05:05 Dose: 100 mls/hr Documented By: Infusion: 01/15/25 21:52 Dose: Infused Documented By: Admin: 01/15/25 21:22 Dose: 100 mls/hr Documented By: Infusion: 01/15/25 15:23 Dose: Infused Documented By: Admin: 01/15/25 14:53 Dose: 100 mls/hr Documented By: Infusion: 01/15/25 05:42 Dose: Infused Documented By: Admin: 01/15/25 05:12 Dose: 100 mls/hr Documented By: Infusion: 01/14/25 21:47 Dose: Infused Documented By: Admin: 01/14/25 21:17 Dose: 100 mls/hr Documented By: Infusion: 01/14/25 14:12 Dose: Infused Documented By: Admin: 01/14/25 13:42 Dose: 100 mls/hr Documented By: Admin: 01/14/25 06:00 Dose: Not Given Documented By: Non-Admin Reason: PATIENT IN OR Infusion: 01/14/25 00:47 Dose: Infused Documented By: Admin: 01/14/25 00:17 Dose: 100 mls/hr Documented By: Admin: 01/14/25 00:16 Dose: Not Given Documented By: Non-Admin Reason: PER CREDENTIALING SPECIALIST ON DUTY,MED NOT AVAILABLE Acetaminophen (Ofirmev Inj) 1,000 mg in 100 mls @ 250 mls/hr IV Q6HR SANDY Last Admin: 01/14/25 10:23 Dose: Not Given Documented By: CHUCK Non-Admin Reason: Discontinued Admin: 01/14/25 10:22 Dose: Not Given Documented By: CHUCK Non-Admin Reason: Discontinued Ketorolac Tromethamine (Ketorolac Inj 30 Mg/Ml Vial) Confirm Administered Dose 30 mg .ROUTE .STK-MED ONE Stop: 01/14/25 04:45 Ketorolac Tromethamine (Ketorolac Inj 30 Mg/Ml Vial) 30 mg IVP Q6HR PRN PRN Reason: PAIN 1-6 (mild-mod Stop: 01/19/25 07:34 Last Admin: 01/15/25 19:39 Dose: 30 mg Documented By: Admin: 01/15/25 09:16 Dose: 30 mg Documented By: Admin: 01/14/25 21:14 Dose: 30 mg Documented By: Midazolam HCl (Midazolam Inj 1 Mg/Ml Vial 2 Ml) Confirm Administered Dose 2 mg .ROUTE .STK-MED ONE Stop: 01/14/25 04:44 Morphine Sulfate (Morphine Sulf Inj 10 Mg/Ml Vial) 4 mg IVP X1 ONE Stop: 01/13/25 12:24 Last Admin: 01/13/25 12:50 Dose: 4 mg Documented By: JAVIER Morphine Sulfate (Morphine Sulf Inj 10 Mg/Ml Vial) 4 mg IVP X1 ONE Stop: 01/13/25 15:41 Last Admin: 01/13/25 16:43 Dose: 4 mg Documented By: NADER Morphine Sulfate (Morphine Sulf Inj 10 Mg/Ml Vial) 4 mg IVP Q4HR PRN PRN Reason: PAIN SCALE 4-10(Mod-Sev Morphine Sulfate (Morphine Sulf Inj 10 Mg/Ml Vial) 3 mg IV Q5M PRN PRN Reason: PAIN SCALE 4-6 (Moderate Stop: 01/14/25 07:25 Morphine Sulfate (Morphine Sulf Inj 10 Mg/Ml Vial) 4 mg IVP Q4HR PRN PRN Reason: PAIN SCALE 7-10(Mod-Sev Ondansetron HCl (Ondansetron Inj 2 Mg/Ml Inj 2 Ml) 4 mg IV X1 ONE; Protocol Stop: 01/13/25 12:24 Last Admin: 01/13/25 12:50 Dose: 4 mg Documented By: JAVIER Ondansetron HCl (Ondansetron Inj 2 Mg/Ml Inj 2 Ml) 4 mg IV X1 ONE; Protocol Stop: 01/13/25 15:41 Last Admin: 01/13/25 16:42 Dose: 4 mg Documented By: KDC Ondansetron HCl (Ondansetron Inj 2 Mg/Ml Inj 2 Ml) Confirm Administered Dose 4 mg .ROUTE .STK-MED ONE Stop: 01/14/25 04:45 Ondansetron HCl (Ondansetron Inj 2 Mg/Ml Inj 2 Ml) 4 mg IV X1 ONE Stop: 01/14/25 05:25 Last Admin: 01/14/25 17:21 Dose: Not Given Documented By: CV Non-Admin Reason: done in OR Ondansetron HCl (Ondansetron Inj 2 Mg/Ml Inj 2 Ml) 4 mg IV Q4HR PRN PRN Reason: NAUSEA OR VOMITING Stop: 02/13/25 07:34 Propofol (Propofol Inj 10 Mg/Ml Vial 20 Ml) Confirm Administered Dose 200 mg IV .STK-MED ONE Stop: 01/14/25 04:44 Rocuronium [place] (Rocuronium Inj 10 Mg/Ml Vial 10 Ml) Confirm Administered Dose 100 mg .ROUTE .STK-MED ONE Stop: 01/14/25 04:45 Sugammadex Sodium (Sugammadex Inj 100 Mg/Ml 2ml Vial) Confirm Administered Dose 200 mg .ROUTE .STK-MED ONE Stop: 01/14/25 04:44 See above Consultations Consultation(s) initiated? (list below): Yes Consultation #1 (Physician, Specialty, Details): I spoke with surgeon Dr. Pineda. Discussed patients PMHx, HPI, ED course, exam findings, labs, and radiology results. Will call him back once MRCP has resulted. Time: 15:50 Diagnosis Differential diagnosis abdominal pain: abdominal pain, calculus of kidney, constipation, diverticulitis and other (cholelithiasis, cholecystitis ) Most likely diagnosis given after review of the tests above:: Abdominal pain Admission Indicated Admission indicated?: not indicated Explain why admission is indicated or not indicated:: Patient signed out to Dr. Hennessy pending MRCP. Admission Request Was there a request for admission?: No Disposition Plan Disposition Plan: other (specify) (Signed out pending MRCP ) Discharge Plan Plan Patient Disposition: Admit Acute Care w/in Hospital
[2025-01-13 16:34] LABS: Collection Type, Urine Clean Catch; Squamous Epithelial Cell,Urine 0 /hpf (0-5)
[2025-01-13] MEDS: PIPER/TAZO 3.375 GM PREMIX 3.375 GM/50 ML BAG IV (16:44)
[2025-01-13 16:48] LABS: Bacteria,Urine Rare; Bilirubin,Urine 1+ (Negative); Blood,Urine Negative (Negative); Clarity,Urine Clear (Clear/Hazy); Color,Urine Yellow (Lt Yel-Yel); Culture Indicated,Urine Not Indicated; Glucose, Urine Trace (Negative); Ketones,Urine Negative (Negative); Leukocyte Esterase,Urine Negative (Negative); Nitrite,Urine Negative (Negative); PH,Urine 6.5 (5.0-7.0); Protein,Urine Trace (Neg - Trace); RBC,Urine 8 /hpf (0-3); Specific Gravity,Urine 1.043 (1.001-1.035); WBC,Urine 4 /hpf (0-5)
[2025-01-13 16:51] LABS: Amphetamine/Methamp Scrn,U Positive (Negative); Barbiturate Screen,Urine Negative (Negative); Benzodiazepines Screen,Urine Negative (Negative); Benzoylecgonine Screen, Ur Negative (Negative); Fentanyl Screen,Urine Negative (Negative); Opiate Screen,Urine Positive (Negative); THC Screen,Urine Negative (Negative)
--- NOTE | 2025-01-13 18:34 | EDNOTE_ITS ---
Emergency Room Addendum Addendum Narrative: [address] Carver. Past medical, surgical, social and family history reviewed. Vitals and home medications reviewed. Results and treatment plan discussed. I will assume the care of the patient at this time and will follow the patient, pending diagnostic results and final disposition. Please refer to the emergency department record for history and examination from initial visit. The following addendum documentation note is intended to reflect any pending information, findings, or radiology results not included in the patient?s initial chart. 2020 Dr. Pineda, general surgeon on-call, was made aware of the patient?s HPI, PMHx, lab and/or radiology results. Discussed treatment plan. Accepts patient for admission and plans for surgery tomorrow. RADIOLOGY DATA: MRI abdomen, without contrast. MRCP Date and time of exam: January 13, 2025 1904 hours INDICATIONS: Leukocytosis, elevated liver function tests on laboratory examination today, right upper abdominal pain epigastric pain, thickened gallbladder wall on liver sonogram today Findings: No focal liver lesions Cholelithiasis Marked gallbladder wall thickening edema and pericholecystic inflammatory change Common hepatic duct 4 mm, common bile duct 4 mm no common hepatic duct or common bile duct stones Minimal edema around the pancreas Spleen is not enlarged No hydronephrosis Minimal perinephric stranding Aorta normal size IMPRESSION: Acute calculus cholecystitis Negative for common hepatic or common bile duct stones Suspicious for mild acute pancreatitis Examination: Abdomen sonogram, Limited Date and time of exam: January 13, 2025 1510 hours INDICATIONS: Elevated liver function tests on laboratory examination 2 days ago Findings: Multiple gallstones Gallbladder wall is thickened and edematous Common bile duct 0.4 cm Pancreas obscured by bowel gas Liver 13.8 cm fatty infiltration trace free fluid in the upper abdomen Normal hepatopedal portal venous flow Patent IVC IMPRESSION: Cholelithiasis Gallbladder wall is thickened 0.6 cm with edema, consider MRCP follow-up to confirm acute cholecystitis Critical Care Time Critical Care Time Critical Care Time: Yes Total Critical Care Time (min.): 40 Attestation: The high probability of sudden, clinically significant deterioration in the patient?s condition required the highest level of my preparedness to intervene urgently. ? The services I provided to this patient were to treat and/or prevent clinically significant deterioration. Services included the following: chart data review, reviewing nursing notes and/or old charts, documentation time, healthcare consultant collaboration regarding findings and treatment options, medication orders and management, direct patient care, vital sign assessments and ordering, interpreting and reviewing diagnostic studies and lab tests. ? Aggregate critical care time includes only time during which I was engaged in work directly related to the patient?s care, as described above, whether at beds [facility] or elsewhere in the Emergency Department. It did not include time spent performing other reported procedures or the services of residents, students, nurses or physician assistants. MD Attestation MD Attestation Scribe Attestation: I, Hadley Sharp, am scribing for and in the presence of Dr. Hennessy. Provider Notation: Although this document has been carefully reviewed, there may still be some phonetic and other typographical errors. These errors are purely grammatical due to imperfections in the software program and should not be construed in any way to compromise the substance of the patient's medical care during this visit.
[2025-01-13] MEDS: HYDROmorphone INJ 2 MG/ML VIAL 0.5 MG IVP (20:50)
[2025-01-13] MEDS: DEXTROSE 5%-0.45% NS 1,000 ML 110 ML IV (20:50)
--- NOTE | 2025-01-13 20:56 | PC.NURSE ---
pt returned from MRI. pt alert. CO abd pain6. pain med given.
--- NOTE | 2025-01-13 21:43 | PC.NURSE ---
DR. NAVARRO AT BEDSIDE, CHOLESECTOMY SURGICAL PROCEDURE EXPLAINED TO PATIENT. PATIENT VERBALIZED UNDERSTANDING OF SURGICAL PROCEDURE INCLUDING RISKS. PATIENT SIGNED CONSENT FOR SURGERY AT 2140.
--- NOTE | 2025-01-13 21:49 | ESHP_ITS ---
HPI Date of Admission 01/13/2025 Chief Complaint Chief Complaint: Patient is admitted with the diagnosis of acute cholecystitis and cholelithiasis HPI History of [place]'s revealed that the patient has had a diagnosis of cholelithiasis but he was not having much symptoms. 2 days ago he started having pain in the upper abdomen radiating to the back and to the sides. He was nauseated but did not vomit much. He came to the emergency room with a severe pain and was found to have a gallstones. But he was discharged home with pain medication to be done elective cholecystectomy. However he returned right back because the pain increased after he went home. And in the hospital he was found to have a leukocytosis and elevated liver enzymes. Therefore surgical consultation was obtained. Patient denies any major medical illness like diabetes or hypertension or heart disease. 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 Past Medical History Past Medical History CARDIAC: Negative Cardiac Disorders or Congestive Heart Failure RESPIRATORY: Negative Respiratory Disorders, Chronic Obstructive Pulmonary Disease (COPD) or Asthma GENITOURINARY: Negative Renal Disease ENDOCRINE: Negative Diabetes Mellitus Type 1 or Diabetes Mellitus Type 2 HEMATOLOGIC: Negative Sickle Cell Disease OTHER HISTORY: Negative Cancer Social History SMOKING STATUS: Never smoker SUBSTANCE USE: does not use Meds Home Medications and Allergies Allergies Allergy/AdvReac Type Severity Reaction Status Date / Time No Known Allergies Allergy Verified 01/13/25 12:14 Exam Vital Signs Temp Pulse Resp BP Pulse Ox O2 Del Method 98.6 F 78 18 123/81 96 Room Air 01/13/25 20:54 01/13/25 20:54 01/13/25 20:54 01/13/25 20:54 01/13/25 20:54 01/13/25 20:54 Narrative Exam Physical examination revealed 44-year-old well-built well-nourished male who is 5 foot 6 inches tall weighing 155 pounds with BMI of 25. His vital signs are normal Routine Respiratory Exam Comments: Good breath sounds on both sides Routine Cardiovascular Exam Comments: Sinus rhythm Routine Abdominal Exam Comments: Examination of the abdomen showed definite tenderness in the right upper quadrant with a positive Oliver sign Routine Rectal Exam Comments: Deferred Routine Exam Comments: Deferred Routine Extremities Exam Comments: Within normal limits Results Results: Laboratory Laboratory Narrative: Patient's laboratory workup showed WBC of 20,000 with a shift to the left. Liver enzymes show elevated transaminase with bilirubin of 1.5 Results: Imaging Imaging narrative: Patient had ultrasound of the gallbladder which showed thickening of the gallbladder with stones. Because of the elevated liver enzyme MRCP was obtained which showed no common bile duct stone Assessment & Plan Additional Assessment Additional comments: Pression: Acute cholecystitis with cholelithiasis Possible common bile duct stone most likely passed Plan Plan: I advised the patient to undergo laparoscopic cholecystectomy because of the ongoing pain and thickening of the gallbladder wall on leukocytosis. The laparoscopic cholecystectomy was explained to the patient including the potential complications like bile duct injury bleeding and injury to the internal organs etc. Patient was told that he may undergo open cholecystectomy in case the laparoscopic approach fails. He is agreeable and all this was intimated to him using an spanish interpreter/translator because he preferred Vietnamese. Patient will be admitted and started on antibiotics and procedure will be performed as soon as operating room is available. Quality Measures Quality Measures none
[2025-01-13 23:07] LABS: Alanine Aminotransferase 426 U/L (10-49); Albumin, Serum 4.2 gm/dL (3.5-5.0); Alkaline Phosphatase 142 U/L (46-116); Aspartate Amino Transferase 329 U/L (0-34); Bilirubin,Total 2.8 mg/dL (0.3-1.2); Total Protein 7.4 gm/dL (5.7-8.2)
[2025-01-14] VITALS (15 sets, daily range): BP systolic 90–140; BP diastolic 61–99; PULSE 72–97; RESP 12–98; TEMP 36.1–37.5; O2SAT 92–100
--- NOTE | 2025-01-14 00:05 | PC.NURSE ---
Report called to Dori. pt taken to floor.
[2025-01-14] MEDS: SODIUM CHLORIDE 0.9% 1000 ML 1,000 ML 100 ML IV ×3 (00:13→18:09)
[2025-01-14] MEDS: PIPER/TAZO 3.375 GM PREMIX 3.375 GM/50 ML BAG IV ×3 (00:17→21:17)
[2025-01-14 06:24] LABS: Alanine Aminotransferase 346 U/L (10-49); Alkaline Phosphatase 154 U/L (46-116); Aspartate Amino Transferase 207 U/L (0-34); Bilirubin,Direct 1.7 mg/dL (0.0-0.3); Bilirubin,Total 2.7 mg/dL (0.3-1.2); Total Protein 6.9 gm/dL (5.7-8.2)
--- NOTE | 2025-01-14 06:48 | PD.SUROPNT ---
Date of Procedure 01/14/25 Pre Op Diagnosis Acute cholecystitis with cholelithiasis Post Op Diagnosis Same with extensive inflammation and ischemia of the gallbladder Procedure Laparoscopic cholecystectomy Findings Patient was found to have extensive inflammation of the gallbladder with greenish discoloration of the wall suggesting ischemia. There was considerable amount of exudate in the liver bed and ileus of the small bowel and large bowel Procedure Description After endotracheal anesthesia was given the patient was placed in supine position and the abdomen was prepped with chloroprep solution and draped in a sterile manner. After time out was performed I injected a few cc of of half percent Marcaine with epinephrine below the umbilicus and I made an incision for about 3 cm in length. The fascia was cleaned and Veress needle was inserted to create a pneumoperitoneum up to 15 mmHg. Then introduced a 12 mm trocar and a 10 mm camera through the fascia and I inspected the intra-abdominal organs as well as the gallbladder and the liver. Another 5 mm trocar was inserted in the epigastric region under direct vision after injecting some local anesthesia. At this time the patient was kept in reverse Trendelenburg position with the left lateral tilt. The third 5 mm trocar was inserted over the mid axillary line under direct vision and a Sung and Geneil grasper was used to hold the fundus of the gallbladder. The retraction was carried out by the front office medical assistant moving the fundus of the gallbladder towards the right shoulder of the patient to create enough traction. The gallbladder was extremely distended and discolored with greenish wall and therefore it has to be decompressed before any retraction could be done. I placed a another 5 mm trocar in the midaxillary line just lateral to the rectus muscle under direct vision. I used a fenestrated grasper to retract the neck of the gallbladder laterally towards the patient's right hip. I dissected the neck of the gallbladder and was able to see the cystic duct. I dissected it all around to make sure there is no other structures. Its junction with the common duct could not be seen but I traced it to the gallbladder neck. The neck clipped doubly and then divided at this time I confirmed that only 2 structures entering the gallbladder were cystic artery and the cystic duct. The common duct was not seen distally but no dissection was carried out around the duct. I did not see any need for operative cholangiogram in this patient. The patient had preoperative MRCP which was negative for common bile duct stone. The cystic duct was clipped doubly and then divided and cystic artery was similarly dealt with. Then the gallbladder was removed from the liver bed using Harmonic deo to control the small blood vessels as the dissection proceeded. Then the gallbladder was from the liver bed completely and delivered through the umbilical port using an Endopouch. The liver bed was coagulated with cautery to obtain satisfactory hemostasis. There was fair amount of oozing from the liver bed which was controlled with cautery and 2 Surgicel's were obtained. The trocars were pulled out from the abdominal cavity and the fascia at the umbilical incision was closed with interrupted 0 Ethibond. Subcutaneous tissues was closed with 3-0 chromic and injected a few cc of half percent Marcaine with epinephrine and the skin was closed with interrupted 4-0 nylon stitches at all the trocar sites. Dressing was applied with 2 x 2 and Tegaderm. Patient tolerated the procedure well and returned to recovery room in stable condition. Anesthesia GETA Pathology / specimen Other (Inflamed gallbladder with stones) IVF Infused 700 Estimated Blood Loss 100 Surgeon Charmaine Cerna MD Surgical Staff Operation Date: 01/14/25 05:15 Case Staff Anesthesiologist: Gonzalez Abernathy RN First Assistant: Kiya French
--- NOTE | 2025-01-14 06:55 | SUR.PHASEI ---
Pt. arrived to recovery via gurdora, VSAndre, pt. asleep, eyes closed, rhonchi and pauses noted upon auscultation of lungs, equal expansion lucretia., pt. receiving 8 liters 02 via oxymask, lap sites x4 to abdomen 2x2 gauze and metaport tape in place, no active bleeding or redness noted. Report received from Sami BRYSON and Dr. Abernathy.
--- NOTE | 2025-01-14 07:22 | SUR.PHASEI ---
Called and gave report on pt. s/p surgery to Primitivo BRYSON on M/S unit. Pt. is stable, no c/o pain or nausea at this time.
--- NOTE | 2025-01-14 07:27 | SUR.PHASEI ---
Pt. transferred to room 371 via gurney by staff, VSS, no c/o pain or nausea at this time, lap sites x4 Cheryl DE LUNA RN assumed care of pt.
--- NOTE | 2025-01-14 07:51 | PC.NURSE ---
Patient came back to Med Surg unit from PACU after Laparoscopic cholecystectomy via gurney. Patient awake, alert and oriented. Assisted and ambulated to hospital bed.
--- NOTE | 2025-01-14 11:26 | PC.SS ---
SS met with patient who is alert/oriented. Patient was able to verify demographics. Patient was admitted for cholecystitis. Patient confirmed he resides with . will remain the point of contact and alt medical decision maker. Patient had surgery this morning. He's independent with ADL's. Patient does not have a p.c.p. He will be provided with the [facility] information for a follow up appointment. Patient states he was not taking any meds. He does not have preferred pharmacy. SS will contact as well for any further information needed. Discharge plan remains to return home with family. Family to provide transportation.
[2025-01-14] MEDS: KETOROLAC INJ 30 MG/ML VIAL IVP (21:14)
[2025-01-15] VITALS (8 sets, daily range): BP systolic 99–134; BP diastolic 66–86; PULSE 59–88; RESP 14–97; TEMP 36.1–36.9; O2SAT 95–99
[2025-01-15] MEDS: SODIUM CHLORIDE 0.9% 1000 ML 1,000 ML 100 ML IV ×2 (05:10→16:32)
[2025-01-15] MEDS: PIPER/TAZO 3.375 GM PREMIX 3.375 GM/50 ML BAG IV ×3 (05:12→21:22)
[2025-01-15 05:32] LABS: Basophils % (Auto) 0 % (0-2.5); Eosinophils % (Auto) 0 % (0-10); Hemoglobin 11.3 g/dL (13.5-16.0); Immature Granulocytes % (Auto) 0 % (0-0); Immature Granulocytes Auto 0.06 Thou/mm3 (0.00-0.00); Lymphocytes # (Auto) 1.3 Thou/mm3 (1.0-4.8); Lymphocytes % (Auto) 9 % (10-50); Mean Corpuscular HGB Conc 34.2 g/dl (31.0-37.0); Mean Corpuscular Hemoglobin 30.2 pg (25.0-35.0); Mean Corpuscular Volume 88 fL (80-100); Monocytes # (Auto) 1.1 Thou/mm3 (0.0-0.8); Monocytes % (Auto) 7 % (0-12); Neutrophils # (Auto) 12.5 Thou/mm3 (1.8-7.7); Neutrophils % (Auto) 83 % (37-80); Nucleated Red Blood Cell % 0 /100 WBC (0); Platelet Count 202 Thou/mm3 (140-440); RDW Standard Deviation 41.4 fL (35.1-43.9); Red Blood Count 3.74 Miln/mm3 (4.50-5.90)
[2025-01-15 06:26] LABS: Alanine Aminotransferase 209 U/L (10-49); Albumin, Serum 3.2 gm/dL (3.5-5.0); Alkaline Phosphatase 121 U/L (46-116); Anion Gap 6 (7-16); Aspartate Amino Transferase 94 U/L (0-34); Bilirubin,Direct 0.4 mg/dL (0.0-0.3); Bilirubin,Total 0.8 mg/dL (0.3-1.2); Carbon Dioxide 26.1 mMol/L (20.0-31.0); Chloride 109 mMol/L (98-107); Potassium 3.9 mMol/L (3.4-5.1); Sodium 141 mMol/L (136-145); Total Protein 5.9 gm/dL (5.7-8.2)
--- NOTE | 2025-01-15 08:07 | ESPR_ITS ---
Documentation for date of: 01/15/25 Subjective Subjective Brief History: History of [place]vashi revealed that the patient has had a diagnosis of cholelithiasis but he was not having much symptoms. 2 days ago he started having pain in the upper abdomen radiating to the back and to the sides. He was nauseated but did not vomit much. He came to the emergency room with a severe pain and was found to have a gallstones. But he was discharged home with pain medication to be done elective cholecystectomy. However he returned right back because the pain increased after he went home. And in the hospital he was found to have a leukocytosis and elevated liver enzymes. Therefore surgical consultation was obtained. Patient denies any major medical illness like diabetes or hypertension or heart disease. 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 He is passing flatus and he is tolerating clear liquid Exam Vital Signs Temp Pulse Resp BP Pulse Ox O2 Del Method O2 Flow Rate 98 F 88 14 122/71 99 Room Air 6 01/15/25 07:20 01/15/25 07:20 01/15/25 07:20 01/15/25 07:20 01/15/25 07:20 01/15/25 07:20 01/14/25 07:05 Patient's vital signs are normal Routine Abdominal Exam Comments: Abdominal examination shows some tenderness diffusely Results Results: Laboratory Laboratory Narrative: Laboratory results show improving LFTs. His WBC is coming down Assessment & Plan Assessment Additional comments: Impression stable postop course following surgery for acute cholecystitis Plan Plan: We will keep him for another day for antibiotics and hopefully discharge him tomorrow Procedures Procedures Laparoscopic cholecystectomy
[2025-01-15] MEDS: KETOROLAC INJ 30 MG/ML VIAL IVP ×2 (09:16→19:39)
[2025-01-16] VITALS: BP 137/86; PULSE 68; RESP 18; TEMP 36.9; O2SAT 97
[2025-01-16] MEDS: SODIUM CHLORIDE 0.9% 1000 ML 1,000 ML 100 ML IV (03:26)
[2025-01-16 04:00] VITALS: BP 144/82; PULSE 60; RESP 17; TEMP 36.8; O2SAT 95
[2025-01-16 05:04] LABS: Basophils # (Auto) 0.1 Thou/mm3 (0.0-0.2); Basophils % (Auto) 1 % (0-2.5); Eosinophils # (Auto) 0.2 Thou/mm3 (0.0-0.5); Eosinophils % (Auto) 2 % (0-10); Hematocrit 34.8 % (41.0-53.0); Hemoglobin 11.9 g/dL (13.5-16.0); Immature Granulocytes % (Auto) 0 % (0-0); Immature Granulocytes Auto 0.03 Thou/mm3 (0.00-0.00); Lymphocytes # (Auto) 2.1 Thou/mm3 (1.0-4.8); Lymphocytes % (Auto) 20 % (10-50); Mean Corpuscular HGB Conc 34.2 g/dl (31.0-37.0); Mean Corpuscular Hemoglobin 30.2 pg (25.0-35.0); Mean Corpuscular Volume 88 fL (80-100); Monocytes # (Auto) 0.8 Thou/mm3 (0.0-0.8); Monocytes % (Auto) 7 % (0-12); Neutrophils # (Auto) 7.2 Thou/mm3 (1.8-7.7); Neutrophils % (Auto) 70 % (37-80); Nucleated Red Blood Cell % 0 /100 WBC (0); Platelet Count 219 Thou/mm3 (140-440); RDW Standard Deviation 41.4 fL (35.1-43.9); Red Blood Count 3.94 Miln/mm3 (4.50-5.90); White Blood Count 10.3 Thou/mm3 (3.8-10.6)
[2025-01-16] MEDS: PIPER/TAZO 3.375 GM PREMIX 3.375 GM/50 ML BAG IV (05:05)
[2025-01-16 05:18] LABS: Alanine Aminotransferase 144 U/L (10-49); Albumin, Serum 3.3 gm/dL (3.5-5.0); Alkaline Phosphatase 104 U/L (46-116); Aspartate Amino Transferase 44 U/L (0-34); Bilirubin,Direct 0.2 mg/dL (0.0-0.3); Bilirubin,Total 0.5 mg/dL (0.3-1.2)
[2025-01-16 07:47] VITALS: BP 139/89; PULSE 65; RESP 18; TEMP 36.7; O2SAT 94
[2025-01-16 09:33] VITALS: PULSE 68; RESP 18; RESP 96
[2025-01-16 12:00] VITALS: BP 140/88; PULSE 64; RESP 18; TEMP 36.5; O2SAT 98
--- NOTE | 2025-01-16 12:47 | ESPR_ITS ---
Documentation for date of: 01/16/25 Subjective Subjective Brief History: History of [place]urvashi revealed that the patient has had a diagnosis of cholelithiasis but he was not having much symptoms. 2 days ago he started having pain in the upper abdomen radiating to the back and to the sides. He was nauseated but did not vomit much. He came to the emergency room with a severe pain and was found to have a gallstones. But he was discharged home with pain medication to be done elective cholecystectomy. However he returned right back because the pain increased after he went home. And in the hospital he was found to have a leukocytosis and elevated liver enzymes. Therefore surgical consultation was obtained. Patient denies any major medical illness like diabetes or hypertension or heart disease. 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 Narrative: Patient is feeling much better and tolerated diet yesterday. IV antibiotic sticks have been given since surgery for the 2 days and his WBCs return to normal today Exam Vital Signs Temp Pulse Resp BP Pulse Ox O2 Del Method O2 Flow Rate 97.7 F 64 18 140/88 H 98 Room Air 6 01/16/25 12:00 01/16/25 12:00 01/16/25 12:00 01/16/25 12:00 01/16/25 12:00 01/16/25 07:47 01/14/25 07:05 His vital signs are normal Routine Abdominal Exam Comments: Abdominal examination shows no significant abnormality Assessment & Plan Assessment Additional comments: Impression: Stable postoperative course following difficult gangrenous cholecystectomy Plan Plan: We shall discharge patient today and see him in follow-up in 1 week Procedures Procedures Laparoscopic cholecystectomy
--- NOTE | 2025-01-18 08:35 | ESDS_ITS ---
RE: CARSON IVY : 1980 DATE OF ADMISSION: 01/14/2025 DATE OF DISCHARGE: 01/16/2025 14:35 DATE OF ADMISSION: 01/13/2025 DATE OF DISCHARGE: 01/16/2025 FINAL DIAGNOSES: Acute calculus, cholecystitis with gangrene. PROCEDURE DONE: Laparoscopic cholecystectomy. IV antibiotic therapy. HOSPITAL COURSE: This patient was seen in the emergency room because of persistent pain over the right upper quadrant associated with leukocytosis and elevated liver enzymes. The patient had an MRCP, which was negative for any stone. It appeared that the common duct stone has been passed. He was therefore taken to the operating room on an urgent basis after starting antibiotic therapy. At the time of presentation, his WBC was elevated to 20,000. Ultrasound of the gallbladder showed thickening with stones. MRCP showed no common bile duct stone. At the time of surgery, the patient was found to have acute gangrenous cholecystitis. Therefore, the patient was made inpatient for IV antibiotic therapy. The patient remained afebrile and gradually tolerated the diet. The patient's WBC returned to normal on 01/16/2025 and his chemistry showed that his liver enzymes are slowly returning towards normal. The patient is tolerating diet. The patient was therefore discharged and he will be seen in my office for a followup on 01/25/2025. DT: 12:54:22 TT: 15:41:00 Ref: [id number] - TID: [id number] MTDD
== END 2025-01-16 14:35 | disposition home or self-care (01) | DRG 263 ==
LOC: SERX 20:19 → S3SX 01-14 04:31 → SERHOLD 01-14 06:07
PROVIDERS: Nurse Practitioner Primary Care; Admitting Provider Surgery; Emergency Provider Emergency Medicine; Visit Provider Surgery
PROC: 0FT44ZZ Resection of Gallbladder, Percutaneous Endoscopic Approach (ICD-10-PCS; CPT 47562; principal; 2025-01-14 05:00)
DX: K80.00 Calculus of gallbladder with acute cholecystitis without obstruction (principal); R74.8 Abnormal levels of other serum enzymes; K82.A1 Gangrene of gallbladder in cholecystitis; K56.7 Ileus, unspecified
CPT/HCPCS: 36415; 76705; 80051; 80053; 80076; 80307; 80320; 81001; 83690; 85025; 87040; 94664; 96365; 96375; 96376; 99291; A4217; A4649; G0378; J1100; J1885; J2250; J2270; J2405; J2543; J2704; J3010; J3490; J7030; J7042; S8037; 74181; G0480